=== PATIENT | female | born 2000 | race Caucasian/White ===

== ENCOUNTER 2022-06-03 14:05 | Emergency (ER) | payer OTHER ==
[2022-06-03 16:52] LABS: BLOOD UREA NITROGEN,BUN 6 mg/dL (7.0-18.0); CARBON DIOXIDE,CO2 22.5 mmol/L (21.0-32.0); CHLORIDE,CL 102 mmol/L (98-107); GLUCOSE RANDOM 86 mg/dL (74-106); SODIUM,NA 136 mmol/L (136-145)
[2022-06-03 17:03] LABS: ESTIMATED GFR 136 mL/min (>60)
== END 2022-06-03 18:16 | disposition home or self-care (01) ==
LOC: MW.ED 14:05
DX: O20.0 Threatened abortion (principal); O44.10 Complete placenta previa with hemorrhage, unspecified trimester; Z20.822 Contact with and (suspected) exposure to COVID-19; Z79.899 Other long term (current) drug therapy
CPT/HCPCS: 36415; 76815; 76815-26; 80053; 81001; 81025; 84702; 85025; 86850; 86900; 86901; 99284; J2790; U0002